=== PATIENT | female | born 2005 | race Caucasian/White ===

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

== ENCOUNTER 2024-08-17 16:41 | Emergency (ER) | payer OTHER ==
[2024-08-17] MEDS ORDERED: Dexamethasone 10 MG/ML VIAL ONE (18:12)
[2024-08-17] MEDS ORDERED: Ibuprofen 200 MG TAB ONE ×2 (18:12→18:17)
== END 2024-08-17 19:30 | disposition home or self-care (01) ==
LOC: ERS 16:41
DX: J02.9 Acute pharyngitis, unspecified (principal); Z55.6 Problems related to health literacy; Z87.891 Personal history of nicotine dependence
CPT/HCPCS: 87081; 87428; 87430; 99283; J1100